=== PATIENT | female | born 1985 | race African-American/Black ===

== ENCOUNTER 2016-05-10 22:03 | Emergency (ER) | payer OTHER ==
[~2016-05-10] VITALS: Ht 162.6 cm; Wt 128.4 kg
[~2016-05-10 22:03] MED LIST: CARV6.25 PO; FAMO20TA5 PO; FURO-68 PO; POTA20TA12 PO
[2016-05-10 22:44] LABS: BILIRUBIN,URINE NEGATIVE (NEG); GLUCOSE,URINE NEGATIVE (NEG); NITRITE,URINE NEGATIVE (NEG); PH,URINE 5.5; PROTEIN,URINE NEGATIVE (NEG-TRACE); UROBILINOGEN,URINE 0.2 mg/dL (0.2 mg/dL)
[2016-05-10 22:46] LABS: BASO # 0.1 x10^3/uL (0.0-0.2); BASO % 1 % (0-3); EOS % 2 % (0-3); HEMOGLOBIN 10.5 g/dL (12.0-15.5); LYMPH % 34 % (24-48); MEAN CORPUSCULAR HEMOGLOBIN 24 pg (25-35); MEAN CORPUSCULAR HGB CONC 32 g/dL (31-37); MEAN CORPUSCULAR VOLUME 75 fL (79-100); MONO % 5 % (0-9); NEUT % 59 % (31-73); PLATELET COUNT 304 x10^3/uL (140-400); RED BLOOD COUNT 4.41 x10^6/uL (3.50-5.40); RED CELL DISTRIBUTION WIDTH 16.4 % (11.5-14.5); WHITE BLOOD COUNT 11.9 x10^3/uL (4.0-11.0)
[2016-05-10 22:52] LABS: BARBITURATES NEG (NEG); BENZODIAZEPINES NEG (NEG); CANNABINOIDS NEG (NEG); COCAINE NEG (NEG); METHADONE NEG (NEG); OPIATES NEG (NEG); PHENCYCLIDINE NEG (NEG)
[2016-05-10 22:53] LABS: ETHANOL, URINE NEG (NEG)
[2016-05-10 22:56] LABS: RBC,URINE RARE /HPF (0-2)
[2016-05-10 22:57] LABS: BACTERIA,URINE FEW /HPF (0-FEW); SQUAMOUS EPITHELIAL CELL,UR MOD /LPF
[2016-05-11 00:04] LABS: CALCIUM 9.5 mg/dL (8.5-10.1); CREATININE 0.7 mg/dL (0.6-1.0); GFR 118.1
[2016-05-11 00:29] VITALS: BP 130/72
[2016-05-11] MEDS ORDERED: NAPROXEN 250 MG TABLET PO ONE (00:45)
[2016-05-11] MEDS ORDERED: CYCLOBENZAPRINE 10 MG TABLET. PO ONE (00:45)
[2016-05-11] MEDS ORDERED: CYCL10TA2 PO (00:55)
[2016-05-11] MEDS ORDERED: NAPR250T2 PO (00:56)
--- NOTE | 2016-05-11 01:17 | EKG ---
[facility] [address] [place] [address] Test Date: 2016-05-10 Test Time: 22:13:55 Pat Name: ISAC OHARA Department: Room: Gender: F Molding And Trim Installer: : 1985 Requested By: ILIANA YANG Order Number: [id number] Reading MD: Blane Limon Measurements Intervals Dante Rate: 66 P: 54 PA: 164 QRS: 27 QRSD: 78 T: 38 QT: 402 QTc: 423 Interpretive Statements SINUS RHYTHM NO SPECIFIC ECG ABNORMALITIES Electronically Signed On 05-20-2016 16:35:37 CDT by Blane Limon
--- NOTE | 2016-05-11 01:33 | ED.ADGEN ---
Past Medical History Past Medical History: CHF, Other Additional Past Medical Histor: Seasonal allergies. Past Surgical History: , Other Additional Past Surgical Histo: TUMOR REMOVED FROM GUM Alcohol Use: Occasionally Drug Use: None Adult General Chief Complaint Chief Complaint: CHEST PAIN HPI HPI Patient is a 30 year old woman, with history of CHF, who stopped taking medications about a year ago, seasonal allergies, who presents to the emergency department with complaint of left upper chest pain over the past several days. She is pain is a constant symptoms began, is sometimes pressure-like in nature, denies any injuries, came be worse with motion. Denies any respiratory complaints. No fevers or chills, no nausea or vomiting, no weakness numbness or tingling. Patient is not taking any medications prior to coming to the ED. She states that she was "stubborn", and did not follow-up with her doctor after she ran out of her medications previously, she was taking Lasix. She denies any history of cardiac heart disease, no family history of sudden cardiac in young people. No recent travel or surgery, no history of DVT or PE. History of enlarged heart", and her father in his 60s. No swelling extremities. No urinary complaints. Review of Systems Review of Systems Constitutional: Denies fever or chills. [] Eyes: Denies change in visual acuity. [] HENT: Denies nasal congestion or sore throat. [] Respiratory: Denies cough or shortness of breath. [] Cardiovascular: Left upper chest pain, no edema. GI: Denies abdominal pain, nausea, vomiting, bloody stools or diarrhea. [] : Denies dysuria. [] Musculoskeletal: Denies back pain or joint pain. [] Integument: Denies rash. [] Neurologic: Denies headache, focal weakness or sensory changes. [] Endocrine: Denies polyuria or polydipsia. [] Lymphatic: Denies swollen glands. [] Psychiatric: Denies depression or anxiety. [] Current Medications Current Medications Current Medications Medications (Trade) Dose Ordered Sig/Hussain Start Time Stop Time Status Last Admin Dose Admin Cyclobenzaprine HCl (Flexeril) 10 mg 1X ONCE 05/11/16 00:45 05/11/16 00:46 DC 05/11/16 00:46 10 MG Naproxen (Naprosyn) 250 mg 1X ONCE 05/11/16 00:45 05/11/16 00:46 DC 05/11/16 00:46 250 MG Allergies Allergies Allergies Coded Allergies Type Severity Reaction Last Updated Verified latex Allergy Intermediate RASH, ITCH 12/05/14 Yes talc Allergy Intermediate RASH, ITCH 12/05/14 Yes Physical Exam Physical Exam Constitutional: Well developed, well nourished, no acute distress, non-toxic appearance. [] HENT: Normocephalic, atraumatic, bilateral external ears normal, oropharynx moist, no oral exudates, nose normal. [] Eyes: PERRLA, EOMI, conjunctiva normal, no discharge. [] Neck: Normal range of motion, no tenderness, supple, no stridor. [] Cardiovascular:Heart rate regular rhythm, no murmur [] Lungs & Thorax: Bilateral breath sounds clear to auscultation [] Abdomen: Bowel sounds normal, soft, no tenderness, no masses, no pulsatile masses. [] Skin: Warm, dry, no erythema, no rash. [] Back: No tenderness, no CVA tenderness. [] Extremities: No tenderness, no cyanosis, no clubbing, ROM intact, no edema. [] Neurologic: Alert and oriented X 3, normal motor function, normal sensory function, no focal deficits noted. [] Psychologic: Affect normal, judgement normal, mood normal. [] Current Patient Data Vital Signs Vital Signs Date Time Temp Pulse Resp B/P Pulse Ox O2 Delivery O2 Flow Rate FiO2 05/10/16 22:20 98.7 67 21 166/74 99 Room Air 98.7 Lab Values Laboratory Tests Test 05/10/16 21:37 05/10/16 22:25 POC Urine HCG, Qualitative Hcg negative (Negative) White Blood Count 11.9x10^3/uL (4.0-11.0) H Red Blood Count 4.41x10^6/uL (3.50-5.40) Hemoglobin 10.5g/dL (12.0-15.5) L Hematocrit 33.0% (36.0-47.0) L Mean Corpuscular Volume 75fL (79-100) L Mean Corpuscular Hemoglobin 24pg (25-35) L Mean Corpuscular Hemoglobin Concent 32g/dL (31-37) Red Cell Distribution Width 16.4% (11.5-14.5) H Platelet Count 304x10^3/uL (140-400) Neutrophils (%) (Auto) 59% (31-73) Lymphocytes (%) (Auto) 34% (24-48) Monocytes (%) (Auto) 5% (0-9) Eosinophils (%) (Auto) 2% (0-3) Basophils (%) (Auto) 1% (0-3) Neutrophils # (Auto) 7.1x10^3uL (1.8-7.7) Lymphocytes # (Auto) 4.0x10^3/uL (1.0-4.8) Monocytes # (Auto) 0.6x10^3/uL (0.0-1.1) Eosinophils # (Auto) 0.2x10^3/uL (0.0-0.7) Basophils # (Auto) 0.1x10^3/uL (0.0-0.2) Urine Collection Type Unknown Urine Color Yellow Urine Clarity Clear Urine pH 5.5 Urine Specific [place] 1.025 Urine Protein Negativemg/dL (NEG-TRACE) Urine Glucose (UA) Negativemg/dL (NEG) Urine Ketones (Stick) Negativemg/dL (NEG) Urine Blood Trace (NEG) Urine Nitrite Negative (NEG) Urine Bilirubin Negative (NEG) Urine Urobilinogen Dipstick 0.2mg/dL (0.2 mg/dL) Urine Leukocyte Esterase Small (NEG) Urine RBC Rare/HPF (0-2) Urine WBC 1-4/HPF (0-4) Urine Squamous Epithelial Cells Mod/LPF Urine Bacteria Few/HPF (0-FEW) Urine Mucus Mod/LPF Sodium Level 139mmol/L (136-145) Potassium Level 4.0mmol/L (3.5-5.1) Chloride Level 103mmol/L (98-107) Carbon Dioxide Level 24mmol/L (21-32) Anion Gap 12 (6-14) Blood Urea Nitrogen 12mg/dL (7-20) Creatinine 0.7mg/dL (0.6-1.0) Estimated GFR (Cockcroft-Gault) 118.1 Glucose Level 87mg/dL (70-99) Calcium Level 9.5mg/dL (8.5-10.1) Troponin I Quantitative < 0.017ng/mL (0.000-0.055) BH-Wmk-B-Type Natriuretic Peptide 33pg/mL (0-124) Lipase 130U/L (73-393) Urine Opiates Screen Neg (NEG) Urine Methadone Screen Neg (NEG) Urine Barbiturates Neg (NEG) Urine Phencyclidine Screen Neg (NEG) Urine Amphetamine/Methamphetamine Neg (NEG) Urine Benzodiazepines Screen Neg (NEG) Urine Cocaine Screen Neg (NEG) Urine Cannabinoids Screen Neg (NEG) Urine Ethyl Alcohol Neg (NEG) Laboratory Tests 05/10/16 22:25 Laboratory Tests 05/10/16 22:25 EKG EKG EC: Sinus rhythm, heart rate 66 bpm, upright axis, QTC of 423, MD 154, QRS is 78, no ST elevations or depressions, no evidence of acute ST abnormalities. As interpreted by me. [] Radiology/Procedures Radiology/Procedures Chest x-ray: Two-view: Normal cardiopulmonary silhouette, no infiltrates, no effusions, no pneumothorax, no soft tissue or bony abnormalities identified. As interpreted by me. [] Course & Med Decision Making Course & Med Decision Making Pertinent Labs and Imaging studies reviewed. (See chart for details) Patient well-appearing, mild tenderness palpation in the left upper chest wall. Oxygen saturation is 99% room air, heart rate is in the 60s to 80s, versus relate unlabored, blood pressure 120s over 70s. PERC negative, chest x-ray unremarkable, laboratory studies are reveal any evidence of acutely concerning findings. On reevaluation patient states that she is feeling better. Received naproxen, cyclobenzaprine, with concern musculoskeletal pain, I do not identify any concerning findings of cardiac or pulmonary abnormality. I did discuss with patient, she is relieved with these findings. Patient receiving laboratory trial in the emergency department, oxygen saturation 100% throughout, heart rate in the 70s to 80s, denied any concerning symptoms. I did discuss concerning symptoms that prompt return with the patient, encouraged her to follow problems her primary care provider for additional evaluation, and to return to the ED if any new or concerning symptoms develop. Patient voiced understanding and agreement, discharged home in stable condition with cyclobenzaprine, naproxen, and follow-up as stated. Dragon Disclaimer Dragon Disclaimer This electronic medical record was generated, in whole or in part, using a voice recognition dictation system. Departure Impression: Primary Impression: Chest wall pain Disposition: HOME, SELF-CARE Condition: IMPROVED Scripts Naproxen 250 Mg [id number] Mg PO BID PRN PAIN #10 Prov:ILIANA YANG DO 05/11/16 Cyclobenzaprine Hcl 10 Mg [id number] Mg PO TID PRN PAIN #12 TAB Prov:ILIANA YANG DO 05/11/16 ILIANA YANG DO May 11, 2016 01:33
--- NOTE | 2016-05-11 08:16 | RAD ---
Indication left-sided chest pain. PA and lateral views of the chest were obtained. Note is made of a previous single view examination 10/02/2013. The heart, pulmonary vessels and mediastinum appear normal. The lungs are clear. There is no pleural fluid or pneumothorax. IMPRESSION: No acute finding apparent in the chest
== END 2016-05-11 01:15 | disposition home or self-care (01) ==
LOC: ER 22:03
DX: R07.89 Other chest pain (principal); I50.9 Heart failure, unspecified; Z91.040 Latex allergy status; Z91.048 Other nonmedicinal substance allergy status
CPT/HCPCS: 36415; 71020; 80048; 80305; 80320; 81001; 81025; 83690; 83880; 84484; 85027; 87086; 93005; G0481; 99285-25

== ENCOUNTER 2017-08-31 11:58 | Emergency (ER) | payer OTHER ==
[2017-08-31] MEDS: LIDOCAINE WITH 8.4% SOD BICARB 3 ML DISP.SYRIN. INJ (12:45)
[2017-08-31] MEDS: HYDROcodone/APAP 5/325MG 1 TAB TABLET PO (13:54)
== END 2017-08-31 13:59 | disposition home or self-care (01) ==
LOC: ER 11:58
DX: Z88.8 Allergy status to other drugs, medicaments and biological substances (principal); Z91.040 Latex allergy status; L02.411 Cutaneous abscess of right axilla
CPT/HCPCS: 10060; 99283-25

== ENCOUNTER 2019-04-22 19:46 | Emergency (ER) | payer OTHER ==
[~2019-04-22] VITALS: Ht 162.6 cm; Wt 127.3 kg
[~2019-04-22 19:46] MED LIST changes: +CYCL10TA2 PO; +IBUP-1007 PO; +NAPR250T6 PO; +SULF1TAB24 PO
[2019-04-22 20:01] VITALS: BP 157/100
[2019-04-22] MEDS ORDERED: TOBR5DRO6 EACHEYE (20:21)
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
== END 2019-04-22 20:24 | disposition home or self-care (01) ==
LOC: ER 19:46
DX: H10.89 Other conjunctivitis (principal); Z86.79 Personal history of other diseases of the circulatory system; Z91.040 Latex allergy status; Z88.8 Allergy status to other drugs, medicaments and biological substances
CPT/HCPCS: 99283

== ENCOUNTER 2019-12-06 14:30 | Emergency (ER) | payer OTHER ==
[~2019-12-06] VITALS: Ht 162.6 cm; Wt 133.6 kg
[~2019-12-06 14:30] MED LIST changes: +TOBR5DRO6 EACHEYE
[2019-12-06 16:58] LABS: BILIRUBIN,URINE NEGATIVE (NEG); CLARITY,URINE CLEAR; COLOR,URINE YELLOW; NITRITE,URINE NEGATIVE (NEG); PH,URINE 7.5 (<5.0-8.0); PROTEIN,URINE NEGATIVE (NEG-TRACE)
[2019-12-06 17:26] LABS: BACTERIA,URINE FEW /HPF (0-FEW)
[2019-12-06 18:10] VITALS: BP 160/96
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
== END 2019-12-06 19:00 | disposition home or self-care (01) ==
LOC: ER 14:30
DX: S70.01XA Contusion of right hip, initial encounter (principal); M54.5 Low back pain; I50.9 Heart failure, unspecified; E66.9 Obesity, unspecified; Z68.43 Body mass index [BMI] 50.0-59.9, adult; Z91.040 Latex allergy status; Z88.8 Allergy status to other drugs, medicaments and biological substances; Z98.890 Other specified postprocedural states; Y08.89XA Assault by other specified means, initial encounter; Y93.89 Activity, other specified; Y92.89 Other specified places as the place of occurrence of the external cause; Y99.8 Other external cause status
CPT/HCPCS: 81001; 81025; 99283

== ENCOUNTER 2020-04-05 12:15 | Emergency (ER) | payer OTHER ==
[~2020-04-05] VITALS: Ht 162.6 cm; Wt 136.0 kg
[2020-04-05 12:40] LABS: BILIRUBIN,URINE NEGATIVE (NEG); CLARITY,URINE CLOUDY; COLOR,URINE YELLOW; NITRITE,URINE NEGATIVE (NEG); PH,URINE 5.5 (<5.0-8.0); PROTEIN,URINE 100 mg/dL (NEG-TRACE); UROBILINOGEN,URINE 0.2 mg/dL (0.2 mg/dL)
[2020-04-05 13:07] LABS: WBC,URINE >40 /HPF (0-4)
[2020-04-05 13:09] LABS: AMORPHOUS SEDIMENT,UR PRESENT /HPF; BACTERIA,URINE FEW /HPF (0-FEW)
[2020-04-05] MEDS ORDERED: DOXYCYCLINE HYCLATE 100 MG TABLET PO ONE (13:45)
[2020-04-05] MEDS ORDERED: cefTRIAXone IM 500 MG VIAL. IM ONE (13:45)
[2020-04-05 15:10] VITALS: BP 147/78
[2020-04-05] MEDS ORDERED: DOXY100T PO (15:10)
[2020-04-05] MEDS ORDERED: CEPH500T PO (15:10)
--- NOTE | 2020-04-05 15:10 | PHYS DOC ---
Past Medical History Past Medical History: CHF, Other Additional Past Medical Histor: Seasonal allergies, Obesity Past Surgical History: , Other Additional Past Surgical Histo: TUMOR REMOVED FROM GUM Smoking Status: Never Smoker Alcohol Use: Occasionally Drug Use: None General Adult EDM: Chief Complaint: VAGINAL PROBLEM HPI: HPI: Patient is a 34 year old female patient presenting to the ED today complaining of vaginal itching with odorous smell that began 4 days after having intercourse with her significant other. Patient is concerned about STDs would like to be tested and treated. Review of Systems: Review of Systems: Constitutional: Denies fever or chills. [] GI: Reports vaginal itching, odor or discharge. Denies abdominal pain, nausea, vomiting, bloody stools or diarrhea. [] : Denies dysuria. [] Musculoskeletal: Denies back pain or joint pain. [] Integument: Denies rash. [] Neurologic: Denies headache, focal weakness or sensory changes. [] Psychiatric: Denies depression or anxiety. [] Heart Score: Risk Factors: Risk Factors: DM, Current or recent (<one month) smoker, HTN, HLP, family history of CAD, obesity. Risk Scores: Score 0 - 3: 2.5% MACE over next 6 weeks - Discharge Home Score 4 - 6: 20.3% MACE over next 6 weeks - Admit for Clinical Observation Score 7 - 10: 72.7% MACE over next 6 weeks - Early Invasive Strategies Current Medications: Current Medications Medications (Trade) Dose Ordered Sig/Hussain Start Time Stop Time Status Last Admin Dose Admin Ceftriaxone Sodium (Rocephin Im) 500 mg 1X ONCE 04/05/20 13:45 04/05/20 13:46 DC 04/05/20 14:16 500 MG Doxycycline Hyclate (Vibra-Tab) 100 mg 1X ONCE 04/05/20 13:45 04/05/20 13:46 DC 04/05/20 14:16 100 MG Allergies: Allergies: Allergies Coded Allergies Type Severity Reaction Last Updated Verified latex Allergy Intermediate RASH, ITCH 12/05/14 Yes talc Allergy Intermediate RASH, ITCH 12/05/14 Yes Physical Exam: PE: Constitutional: Well developed, well nourished, no acute distress, non-toxic appearance. [] Abdomen: Bowel sounds normal, soft, no tenderness, no masses, no pulsatile masses. [] Pelvic exam-external pelvic appears normal, cervix is visualized, closed, no CMT, no evidence of tenderness, trace amount of white discharge in the vaginal vault Skin: Warm, dry, no erythema, no rash. [] Back: No tenderness, no CVA tenderness. [] Extremities: No tenderness, no cyanosis, no clubbing, ROM intact, no edema. [] Neurologic: Alert and oriented X 3, normal motor function, normal sensory function, no focal deficits noted. [] Psychologic: Affect normal, judgement normal, mood normal. [] Current Patient Data: Labs: Laboratory Tests Test 04/05/20 12:20 04/05/20 12:33 Urine Collection Type Void Urine Color Yellow Urine Clarity Cloudy Urine pH 5.5 (<5.0-8.0) Urine Specific [place] 1.025 (1.000-1.030) Urine Protein 100 mg/dL (NEG-TRACE) Urine Glucose (UA) Negative mg/dL (NEG) Urine Ketones (Stick) Negative mg/dL (NEG) Urine Blood Small (NEG) Urine Nitrite Negative (NEG) Urine Bilirubin Negative (NEG) Urine Urobilinogen Dipstick 0.2 mg/dL (0.2 mg/dL) Urine Leukocyte Esterase Large (NEG) Urine RBC 1-2 /HPF (0-2) Urine WBC >40 /HPF (0-4) Urine Squamous Epithelial Cells Many /LPF Urine Amorphous Sediment Present /HPF Urine Bacteria Few /HPF (0-FEW) Urine Mucus Mod /LPF POC Urine HCG, Qualitative Hcg negative (Negative) Microbiology 04/05/20 Wet Prep - Final, Complete Vital Signs: Vital Signs Date Time Temp Pulse Resp B/P (MAP) Pulse Ox O2 Delivery O2 Flow Rate FiO2 04/05/20 13:16 98.1 78 18 155/82 (106) 98 Room Air 98.1 EKG: EKG: [] Radiology/Procedures: Radiology/Procedures: [] Course & Med Decision Making: Course & Med Decision Making Pertinent Labs and Imaging studies reviewed. (See chart for details) This is a 34-year-old female patient presenting to the ED today complaining of vaginal discharge, odorous smell symptoms began 4 days ago after having intercourse with significant other. Is concerned about STDs. Negative urine hCG, positive for UTI, wet prep negative. + for UTI. Was treated for STDs, discharged on doxycycline. Follow-up with PCP in 1 to 2 weeks Ankit Disclaimer: Ankit Disclaimer: This electronic medical record was generated, in whole or in part, using a voice recognition dictation system. Departure Departure Impression: Primary Impression: Concern about STD in female without diagnosis Additional Impression: Urinary tract infection Qualified Codes: N39.0 - Urinary tract infection, site not specified Disposition: DC HOME SELF CARE/HOMELESS Condition: STABLE Referrals: BOB TANNER MD (PCP) follow up in 1-2 weeks Patient Instructions: Sexually Transmitted Disease, [id number], Urinary Tract Infection Additional Instructions: You were tested for sexually transmitted diseases, we will call you if your results are positive. You also have UTI. Please complete the rest of the prescribed antibiotics. Do not have any intercourse for 1 week. Make sure you let your partner know you are positive for STDs and have him get treated Scripts Cephalexin (CEPHALEXIN) 500 Mg Tablet 1 TAB PO BID, #14 TAB Prov: TIEN KING ASSISTANT DIRECTOR OF ADMISSIONS 04/05/20 Doxycycline Hyclate (DOXYCYCLINE HYCLATE) 100 Mg Tablet 1 TAB PO BID, #14 TAB Prov: TIEN KING ASSISTANT DIRECTOR OF ADMISSIONS 04/05/20 TIEN KING APRN Apr 05, 2020 15:10
[2020-04-06 19:09] LABS: GC PROBE Negative (Negative)
== END 2020-04-05 15:29 | disposition home or self-care (01) ==
LOC: ER 12:15
DX: N39.0 Urinary tract infection, site not specified (principal); N89.8 Other specified noninflammatory disorders of vagina; L29.2 Pruritus vulvae; I50.9 Heart failure, unspecified; E66.8 Other obesity; Z98.890 Other specified postprocedural states; Z68.43 Body mass index [BMI] 50.0-59.9, adult; Z91.040 Latex allergy status
CPT/HCPCS: 81001; 81025; 87086; 87491; 87591; 96372; 99283; J0696; Q0111

== ENCOUNTER 2020-08-22 09:02 | Emergency (ER) | payer OTHER ==
[~2020-08-22] VITALS: Ht 162.6 cm; Wt 140.0 kg
[~2020-08-22 09:02] MED LIST changes: +CEPH500T PO; +DOXY100T PO; +NAPR-699 PO; -NAPR250T6 PO
[2020-08-22] MEDS ORDERED: DEXAMETHASONE 4 MG TABLET PO ONE (09:15)
[2020-08-22] MEDS ORDERED: METH4TAB2 PO (09:29)
[2020-08-22] MEDS ORDERED: AMOX500C PO (09:29)
--- NOTE | 2020-08-22 09:30 | PHYS DOC ---
Past Medical History Past Medical History: CHF, Other Additional Past Medical Histor: Seasonal allergies, Obesity (AMELIA FAULKNER SHEET PILE HAMMER OPERATOR) Past Surgical History: , Other Additional Past Surgical Histo: TUMOR REMOVED FROM GUM (AMELIA FAULKNER SHEET PILE HAMMER OPERATOR) Smoking Status: Never Smoker Alcohol Use: Occasionally Drug Use: None (AMELIA FAULKNER APRN) General Adult EDM: Chief Complaint: EARACHE/EAR PAIN HPI: HPI: Patient is a 34 year old female who presents with sore throat, fever, ear pain x 3 days. Patient states she has been taking benadryl for her runny nose because she has seasonal allergies. Patient states that she is able to drink and eat food but it hurts to swallow. She rates her pain as a 7/10. Denies headache, chest pain, soa, wheezing, cough, abdominal pain, diarrhea, constipation, dizziness, vomiting, nausea. (AMELIA FAULKNER SHEET PILE HAMMER OPERATOR) Review of Systems: Review of Systems: Constitutional: + fever or chills. [] Eyes: Denies change in visual acuity. [] HENT: + nasal congestion or +sore throat. +ear pain[] Respiratory: Denies cough or shortness of breath. [] Cardiovascular: Denies chest pain or edema. [] GI: Denies abdominal pain, nausea, vomiting, bloody stools or diarrhea. [] : Denies dysuria. [] Musculoskeletal: Denies back pain or joint pain. [] Integument: Denies rash. [] Neurologic: Denies headache, focal weakness or sensory changes. [] Endocrine: Denies polyuria or polydipsia. [] Lymphatic: Denies swollen glands. [] Psychiatric: Denies depression or anxiety. [] (AMELIA FAULKNER SHEET PILE HAMMER OPERATOR) Heart Score: C/O Chest Pain: No Risk Factors: Risk Factors: DM, Current or recent (<one month) smoker, HTN, HLP, family history of CAD, obesity. Risk Scores: Score 0 - 3: 2.5% MACE over next 6 weeks - Discharge Home Score 4 - 6: 20.3% MACE over next 6 weeks - Admit for Clinical Observation Score 7 - 10: 72.7% MACE over next 6 weeks - Early Invasive Strategies (AMELIA FAULKNER SHEET PILE HAMMER OPERATOR) Allergies: Allergies: Allergies Coded Allergies Type Severity Reaction Last Updated Verified latex Allergy Intermediate RASH, ITCH 12/05/14 Yes talc Allergy Intermediate RASH, ITCH 12/05/14 Yes (AMELIA FAULKNER APRN) Physical Exam: PE: Constitutional: Well developed, well nourished, no acute distress, non-toxic appearance. [] HENT: Normocephalic, atraumatic, bilateral external ears normal, oropharynx moist, no oral exudates, nose normal. Right ear redness. Bilateral tympanics intact but foggy. Bilateral tonsils 2+ swollen without exudates. [] Eyes: PERRLA, EOMI, conjunctiva normal, no discharge. [] Neck: Normal range of motion, no tenderness, supple, no stridor. [] Cardiovascular:Heart rate regular rhythm, no murmur [] Lungs & Thorax: Bilateral breath sounds clear to auscultation [] Abdomen: Bowel sounds normal, soft, no tenderness, no masses, no pulsatile masses. [] Skin: Warm, dry, no erythema, no rash. [] Back: No tenderness, no CVA tenderness. [] Extremities: No tenderness, no cyanosis, no clubbing, ROM intact, no edema. [] Neurologic: Alert and oriented X 3, normal motor function, normal sensory function, no focal deficits noted. [] Psychologic: Affect normal, judgement normal, mood normal. [] (AMELIA FAULKNER APRN) EKG: EKG: [] (AMELIA FAULKNER APRN) Radiology/Procedures: Radiology/Procedures: [] (AMELIA FAULKNER APRN) Course & Med Decision Making: Course & Med Decision Making Pertinent Labs and Imaging studies reviewed. (See chart for details) See HPI. Alert and oriented x4. Speaks in full clear sentences. Skin pink warm and dry. Lungs clear to auscultation in all lobes. vital signs wnl. uvula mid line. No trimus. Bilateral tympanics foggy, intact but right tympanic red. No nuchal rigidity. swallowing saliva. Patient is given dexamethasone in the ed. [] (AMELIA FAULKNER APRN) Course & Med Decision Making I oversaw on the above date of service of this patient. This patient was evaluated, examined, treated, and dispositioned from the emergency department by the mid-level practitioner. Although I was working at the time and available for consultation, no assistance was requested and I did not see or immediately direct the care of this patient. I reviewed note and agree to findings, plan of care, and disposition as stated. Electronically signed, Sarabjit Moore DO (SARABJIT MOORE DO) Ankit Disclaimer: Ankit Disclaimer: This electronic medical record was generated, in whole or in part, using a voice recognition dictation system. (AMELIA FAULKNER APRN) Departure Departure Impression: Primary Impression: Otitis media Qualified Codes: H65.113 - Acute and subacute allergic otitis media (mucoid) (sanguinous) (serous), bilateral Additional Impression: Sore throat Disposition: HOME / SELF CARE / HOMELESS Condition: STABLE Referrals: BOB TANNER MD (PCP) Patient Instructions: Otitis Media, Adult, Tonsillitis Additional Instructions: Follow-up with primary care provider. Drink plenty of fluids. Take medication as prescribed and with food. If you begin to not be able to swallow your own saliva or have trouble breathing return emergency room. Scripts Methylprednisolone (MEDROL) 4 Mg Tab.ds.pk 1 PKG PO UD, #1 PKG Prov: AMELIA FAULKNER APRN 08/22/20 Amoxicillin (AMOXICILLIN) 500 Mg Capsule 1 CAP PO BID, #20 CAP Prov: AMELIA FAULKNER APRN 08/22/20 AMELIA FAULKNER APRN Aug 22, 2020 09:30 SARABJIT MOORE DO Aug 22, 2020 17:12
[2020-08-22 09:41] VITALS: BP 148/76
== END 2020-08-22 10:11 | disposition home or self-care (01) ==
LOC: ER 09:02
DX: H65.113 Acute and subacute allergic otitis media (mucoid) (sanguinous) (serous), bilateral (principal); J02.9 Acute pharyngitis, unspecified; Z86.79 Personal history of other diseases of the circulatory system; Z91.040 Latex allergy status; Z88.8 Allergy status to other drugs, medicaments and biological substances
CPT/HCPCS: 87880; 99283

== ENCOUNTER 2020-10-03 10:06 | Emergency (ER) | payer OTHER ==
[~2020-10-03] VITALS: Ht 162.6 cm; Wt 137.0 kg
[~2020-10-03 10:06] MED LIST changes: +AMOX500C PO; +METH4TAB2 PO
[2020-10-03 10:20] VITALS: BP 179/85
[2020-10-03] MEDS ORDERED: FLUORESCEIN OPHTH TEST STRIP. OS ONE (10:45)
[2020-10-03] MEDS ORDERED: TETRACAINE 0.5% OPHTH SOLUTION 4ML BOTTLE. OS ONE (10:45)
[2020-10-03] MEDS ORDERED: EYE-STREAM OPHTH SOLUTION 120 ML BOTTLE. OS ONE (10:45)
[2020-10-03] MEDS ORDERED: ERYTHROMYCIN 0.5% OPHTH OINTMENT 1GM TUBE. OS ONE (11:45)
[2020-10-03] MEDS ORDERED: DIPH,PERTUSS(ACELL),TET VAC/PF 0.5 ML SYRINGE. VAX IM ONE (12:00)
[2020-10-03] MEDS ORDERED: ERYT1OIN3 LEFTEYE (12:06)
--- NOTE | 2020-10-03 12:07 | PHYS DOC ---
Past Medical History Past Medical History: CHF, Other Additional Past Medical Histor: Seasonal allergies, Obesity (CATE BISWAS APRN) Past Surgical History: , Other Additional Past Surgical Histo: TUMOR REMOVED FROM GUM (CATE BISWAS APRN) Smoking Status: Never Smoker Alcohol Use: Occasionally Drug Use: None (CATE BISWAS APRN) General Adult EDM: Chief Complaint: EYE PROBLEMS HPI: HPI: Patient is a 34 year old female presents to the emergency department chief complaint left eye irritation for the past week. Patient reports last week she was using a spray disinfectant and some sprayed into her eye. Patient reports she immediately irrigated her left eye with water. Patient reports she had some mild discomfort and redness throughout the week, patient feels she may have scratched her eye because it feels like there is something in it now when it did not feel this way before. Patient denies any decreased vision or eye pain. Patient denies any other physical complaints or physical concerns. Patient reports receiving the COVID-19 virus vaccine Pfizer type first series injection, reports her second and injection is due 17 October 2020. Patient states her last tetanus immunization was greater than 5 years ago. Patient denies any other physical complaints or physical concerns. (CATE BISWAS APRN) Review of Systems: Review of Systems: 14 body systems of review of systems have been reviewed. See HPI for pertinent positives and negative responses, otherwise all other systems are negative, nonpertinent or noncontributory. Constitutional: Negative except as outlined in HPI above. Skin: Negative except as outlined in HPI above. Eyes: Negative except as outlined in HPI above. HENT: Negative except as outlined in HPI above. Respiratory: Negative except as outlined in HPI above. Cardiovascular: Negative except as outlined in HPI above. GI: Negative except as outlined in HPI above. : Negative except as outlined in HPI above. Musculoskeletal: Negative except as outlined in HPI above. Integument: Negative except as outlined in HPI above. Neurologic: Negative except as outlined in HPI above. Endocrine: Negative except as outlined in HPI above. Lymphatic: Negative except as outlined in HPI above. Psychiatric: Negative except as outlined in HPI above. (CATE BISWAS APRN) Heart Score: C/O Chest Pain: No Risk Factors: Risk Factors: DM, Current or recent (<one month) smoker, HTN, HLP, family history of CAD, obesity. Risk Scores: Score 0 - 3: 2.5% MACE over next 6 weeks - Discharge Home Score 4 - 6: 20.3% MACE over next 6 weeks - Admit for Clinical Observation Score 7 - 10: 72.7% MACE over next 6 weeks - Early Invasive Strategies (CATE BISWAS APRN) Current Medications: Current Medications Medications (Trade) Dose Ordered Sig/Hussain Start Time Stop Time Status Last Admin Dose Admin Balanced Salt Solution (Eye-Stream) 120 ml 1X ONCE 10/03/20 10:45 10/03/20 10:46 DC 10/03/20 11:09 120 ML Erythromycin (Romycin) 0.25 inch 1X ONCE 10/03/20 11:45 10/03/20 11:46 UNV Fluorescein Sodium (Ful-Elis) 1 strip 1X ONCE 10/03/20 10:45 10/03/20 10:46 DC 10/03/20 10:45 1 STRIP Tetracaine HCl (Tetracaine) 1 drop 1X ONCE 10/03/20 10:45 10/03/20 10:46 DC 10/03/20 10:44 1 DROP (CATE BISWAS APRN) Allergies: Allergies: Allergies Coded Allergies Type Severity Reaction Last Updated Verified latex Allergy Intermediate RASH, ITCH 12/05/14 Yes talc Allergy Intermediate RASH, ITCH 12/05/14 Yes (CATE BISWAS APRN) Physical Exam: PE: Constitutional: Well developed, well nourished, no acute distress, non-toxic appearance. 34-year-old female in no apparent distress. HENT: Normocephalic, atraumatic. Eyes: no discharge, satisfactory 6 cardinal eye movements, mild conjunctivitis, globe intact, Young lamp examination after tetracaine eyedrops instilled and fluorescein dye reveals corneal abrasion at 9 o'clock position left eye just outside of iris border. Visual acuity OD 20/20, OS 20/15, OU 20/13. Neck: Normal range of motion, no stridor. Cardiovascular: No cyanosis appreciated, distal cap refill less than 2 seconds. Lungs & Thorax: Patient is in no respiratory distress, no audible adventitious lung sounds appreciated. Abdomen: Nontender, no abnormalities noted. Skin: Warm, dry, no erythema, no rash. [] Back: No tenderness, no deformities. Extremities: No tenderness, no cyanosis, no clubbing, ROM intact, no edema. [] Neurologic: Alert and oriented X 3, normal motor function, normal sensory function, no focal deficits noted. Psychologic: Affect normal, judgement normal, mood normal. (CATE BISWAS APRN) Current Patient Data: Labs: Laboratory Tests Test 10/03/20 10:45 SARS-CoV-2 Antigen (Rapid) Negative (NEGATIVE) Vital Signs: Vital Signs Date Time Temp Pulse Resp B/P (MAP) Pulse Ox O2 Delivery O2 Flow Rate FiO2 10/03/20 10:20 99.3 79 20 179/85 (101) 97 Room Air 99.3 (CATE BISWAS APRN) EKG: EKG: [] (CATE BISWAS APRN) Radiology/Procedures: Radiology/Procedures: [] (CATE BISWAS APRN) Course & Med Decision Making: Course & Med Decision Making Pertinent Labs and Imaging studies reviewed. (See chart for details) 34-year-old female, vital signs reviewed, presents to the emergency department with chief complaint of left eye irritation for the past 2 days. Physical examination with fluorescein eye stain reveals corneal abrasion. Will bring patient's tetanus immunization status up-to-date with Adacel/Tdap, start on erythromycin eye ointment antibiotic regimen. Discussed findings with patient, discussed eye ointment antibiotic regimen, side effects, new medications, ongoing care at home, follow-up with eye doctor soon, patient is amenable to ED discharge planning. Covid testing performed in ED today, patient's rapid Covid test negative. Patient is aware of this. Fluorescein Wood's lamp examination performed, tetracaine eyedrops instilled to left eye, fluorescein dye, examination revealed corneal abrasion just outside iris border at the 9 o'clock position, I irrigated with normal saline eye irrigation wash 120 cc. Patient tolerated well. Discussed with the patient all findings and diagnostic testing as well as the need to follow-up with their primary care provider for further evaluation and treatment or return to the ED if any new or worsening symptoms. Strict return precautions were also discussed at length, the patient voiced understanding and agreement with the discharge planning. The patient was nontoxic in appearance, in no apparent distress, and hemodynamically stable at the time of disposition. (CATE BISWAS APRN) Course & Med Decision Making I have participated in the care of this patient and I have reviewed and agree with all pertinent clinical information above including history, exam, and recommendations. Yaw Bingham DO (YAW BINGHAM DO) Ankit Disclaimer: Ankit Disclaimer: This electronic medical record was generated, in whole or in part, using a voice recognition dictation system. (CATE BISWAS APRN) Departure Departure Impression: Primary Impression: Corneal abrasion, left Qualified Codes: S05.02XA - Injury of conjunctiva and corneal abrasion without foreign body, left eye, initial encounter Disposition: HOME / SELF CARE / HOMELESS Condition: GOOD Referrals: BOB TANNER MD (PCP) Patient Instructions: Eye - Corneal Abrasion Additional Instructions: You were seen today for an irritation to the left eye. An examination was performed with a Young lamp, this examination showed you have a scratch which is sometimes called an abrasion to the cornea of your eye. As we discussed, you are starting on an antibiotic ointment regimen, please place 1/4 inch ribbon inside the lower eyelid 4 times a day for the next 5 days. Please follow-up with an eye doctor this week for ongoing examination and management. Thank you for visiting our Emergency Department. It was a pleasure taking care of you today in the emergency department and we appreciate you trusting us with your care. If any additional problems come up don't hesitate to return to visit us. Please follow up with your primary care provider so they can plan additional care if needed and know about the problem that you had. If symptoms worsen come back to the Emergency Department. Any concerning symptoms that start such as chest pain, shortness of air, weakness or numbness on one side of the body, running high fevers or any other concerning symptoms return to the ER. Your tetanus immunization was brought up-to-date today in the emergency department with a medication called Adacel/Tdap. Please update your immunization records accordingly. EMERGENCY DEPARTMENT GENERAL DISCHARGE INSTRUCTIONS Thank you for coming to [facility] Emergency Department (ED) today and trusting us with you care. We trust that you had a positive experience in our Emergency Department. If you wish to speak to the department management, you may call the Director at [phone]. YOUR FOLLOW UP INSTRUCTIONS ARE FOLLOWS: 1. Do you have a private Doctor? If you do not have a private doctor, please ask for a resource list of physicians or clinics that may be able to assist you with follow up care. 2. The Emergency Physicain has interpreted your x-rays. The X-Ray specialist will also review them. If there is a change in the findings, you will be notified in 48 hours when at all possible. 3. A lab test or culture has been done, your results will be reviewed and you will be notified if you need a change in treatment. ADDITIONAL INSTRUCTIONS AND INFORMATION: 1. Your care today has been supervised by a physician who is specially trained in emergency care. Many problems require more than one evaluation for a complete diagnosis and treatment. We recommend that you schedule your follow up appointment as recommended to ensure complete treatment of you illness or injury. If you are unable to obtain follow up care and continue to have a problem, or if your condition worsens, we recommend that you return to the ED. 2. We are not able to safely determine your condition over the phone nor are we able to give sound medical advice over the phone. For these safety reasons, if you call for medical advice we will ask you to come to the ED for further evaluation. 3. If you have any questions regarding these discharge instructions please call the ED at [phone]. SAFETY INFORMATION: In the interest of safety, wellness, and injury prevention; we encourage you to wear your sealbelt, if you smoke; quite smoking, and we encourage family to use a protective helmet for bicycling and other sporting events that present an increased risk for head injury. IF YOUR SYMPTOMS WORSEN OR NEW SYMPTOMS DEVELOP, OR YOU HAVE CONCERNS ABOUT YOUR CONDITION; OR IF YOUR CONDITION WORSENS WHILE YOU ARE WAITING FOR YOUR FOLLOW UP APPOINTMENT; EITHER CONTACT YOUR PRIMARY CARE DOCTOR, THE PHYSICIAN WHOSE NAME AND NUMBER YOU WERE GIVEN, OR RETURN TO THE ED IMMEDIATELY. Scripts Erythromycin Base (ERYTHROMYCIN) 3.5 Gm Oint...g. 1 DANIEL ENRRIQUE QID for corneal abrasion, #3.5 GM 0 Refills Prov: CATE BISWAS APRN 10/03/20 CATE BISWAS APRN Oct 03, 2020 12:07 YAW BINGHAM DO Oct 03, 2020 16:24
--- NOTE | 2020-10-04 19:44 | NUR ---
IP: Attempted to contact pt concerning covid results. No answer, left a voicemail to return the call.
--- NOTE | 2020-10-05 10:11 | NUR ---
IP: Informed pt of negative covid test. Pt verbalized understanding.
== END 2020-10-03 12:50 | disposition home or self-care (01) ==
LOC: ER 10:06
DX: S05.02XA Injury of conjunctiva and corneal abrasion without foreign body, left eye, initial encounter (principal); Z20.822 Contact with and (suspected) exposure to COVID-19; Z86.79 Personal history of other diseases of the circulatory system; Z91.040 Latex allergy status; Z88.8 Allergy status to other drugs, medicaments and biological substances; X58.XXXA Exposure to other specified factors, initial encounter; Y93.89 Activity, other specified; Y92.89 Other specified places as the place of occurrence of the external cause; Y99.8 Other external cause status
CPT/HCPCS: 87426; 90471; 90715; 99283; U0003; U0005

== ENCOUNTER 2020-11-09 10:44 | Emergency (ER) | payer OTHER ==
[~2020-11-09] VITALS: Ht 162.6 cm; Wt 138.0 kg
[~2020-11-09 10:44] MED LIST changes: +ERYT1OIN3 LEFTEYE
--- NOTE | 2020-11-09 11:31 | PHYS DOC ---
Past Medical History Past Medical History: CHF, Other Additional Past Medical Histor: Seasonal allergies, Obesity (RONAK MORAN) Past Surgical History: No Surgical History Additional Past Surgical Histo: TUMOR REMOVED FROM GUM (RONAK MORAN) Smoking Status: Never Smoker Alcohol Use: Occasionally Drug Use: None (RONAK MORAN) General Adult EDM: Chief Complaint: SEXUALLY TRANSMITTED DISEASE HPI: HPI: Patient is a 34 year old female who presents with 2-week history of increased vaginal discharge and dysuria. Patient describes her discharge as yellowish and thick, however changes in consistency day-to-day. She reports associated "light odor." Patient has one sexual partner currently, who she states has not made her aware of any symptoms he may be having. Patient denies abdominal pain, N/V/D, pelvic pain, and hematuria. Patient has no other complaints at this time (RONAK MORAN) Review of Systems: Review of Systems: Constitutional: Denies fever or chills. Respiratory: Denies cough or shortness of breath. Cardiovascular: Denies chest pain or edema. GI: See HPI : See HPI Musculoskeletal: Denies back pain or joint pain. Integument: Denies rash, including palms and oral mucosa. Neurologic: Denies headache, focal weakness or sensory changes. (RONAK MORAN) Heart Score: C/O Chest Pain: No (RONAK MORAN) Allergies: Allergies: Allergies Coded Allergies Type Severity Reaction Last Updated Verified latex Allergy Intermediate RASH, ITCH 11/09/20 Yes talc Allergy Intermediate RASH, ITCH 11/09/20 Yes (RONAK MORAN) Physical Exam: PE: Constitutional: Obese, well-groomed, no acute distress, non-toxic appearance. HENT: Normocephalic, atraumatic, bilateral external ears normal, oropharynx moist, no oral exudates, nose normal. Eyes: Conjunctiva normal, no discharge. Cardiovascular:Heart rate regular rhythm, no murmur. Lungs & Thorax: Bilateral breath sounds clear to auscultation. Abdomen: Bowel sounds normal, soft, no tenderness, no masses, no pulsatile ma sses. : Mons pubis without lesions, appropriate and symmetrical hair growth pattern. No lesions to labia minora or majora. Small amount of white-yellow discharge noted at introitus. Skin: Warm, dry, no erythema, no rash. Extremities: No tenderness, no cyanosis, no clubbing, ROM intact, no edema. Neurologic: Alert and oriented X 3, normal motor function, normal sensory function, no focal deficits noted. (RONAK MORAN) Current Patient Data: Labs: Laboratory Tests Test 11/09/20 10:59 POC Urine HCG, Qualitative Hcg negative (Negative) Vital Signs: Vital Signs Date Time Temp Pulse Resp B/P (MAP) Pulse Ox O2 Delivery O2 Flow Rate FiO2 11/09/20 11:10 98.0 71 15 171/89 (116) 100 Room Air 98.0 (RONAK MORAN) Course & Med Decision Making: Course & Med Decision Making Pertinent Labs and Imaging studies reviewed. (See chart for details) Swabs and urine sample will be obtained to test for gonorrhea, chlamydia, trichomoniasis, bacterial vaginosis and yeast infection. She may have additional treatment for BV or yeast infection if the wet prep comes back positive. Wet prep came back positive for likely BV, and urine shows UTI. Patient will be given antibiotics to treat these conditions. Will not treat for gonorrhea and chlamydia at this time, as there is etiology of her symptoms with the resulted work-up. Patient is aware that if G/C comes back positive, she will need additional prescription sent in, as well as advised her partner to seek treatment. Patient is agreeable to discharge plan. (RONAK MORAN) Dragon Disclaimer: Dragon Disclaimer: This electronic medical record was generated, in whole or in part, using a voice recognition dictation system. (RONAK MORAN) Departure Departure Impression: Primary Impression: BV (bacterial vaginosis) Additional Impression: Urinary tract infection Qualified Codes: N39.0 - Urinary tract infection, site not specified Disposition: HOME / SELF CARE / HOMELESS Condition: STABLE Referrals: BOB TANNER MD (PCP) Patient Instructions: Bacterial Vaginosis, [id number], Urinary Tract Infection, [id number] Additional Instructions: It will take a few days for the additional swab testing results to come back. Until then, complete the course of antibiotics were prescribed. If you have worsening pain, blood in your urine, develop a fever, please return to the emergency department. Do not drink alcohol while taking metronidazole (Flagyl). Scripts Cephalexin (CEPHALEXIN) 500 Mg Tablet 1 TAB PO BID for 7 Days, #14 TAB Take 1 tablet by mouth twice a day for 7 days. Please be sure to take full course of antibiotics. Prov: RONAK MORAN 11/09/20 Metronidazole (METRONIDAZOLE) 500 Mg Tablet 1 TAB PO BID for 7 Days, #14 TAB 0 Refills Take 1 tablet by mouth twice a day for 7 days. Please be sure to take full course of antibiotics. Prov: RONAK MORAN 11/09/20 Attending Signature I have participated in the care of this patient and I have reviewed and agree with all pertinent clinical information above including history, exam, and recommendations. (GEM PERKINS DO) RONAK MORAN Nov 09, 2020 11:31 GEM PERKINS DO Nov 09, 2020 13:04
[2020-11-09 11:33] LABS: BILIRUBIN,URINE NEGATIVE (NEG); CLARITY,URINE CLEAR; COLOR,URINE YELLOW; NITRITE,URINE NEGATIVE (NEG); PROTEIN,URINE NEGATIVE (NEG-TRACE); UROBILINOGEN,URINE 0.2 mg/dL (0.2 mg/dL)
[2020-11-09 11:46] LABS: BACTERIA,URINE FEW /HPF (0-FEW); WBC,URINE 20-40 /HPF (0-4)
[2020-11-09] MEDS ORDERED: CEPH500T PO (12:44)
[2020-11-09] MEDS ORDERED: METR-34 PO (12:44)
[2020-11-09 13:11] VITALS: BP 142/70
[2020-11-10 19:10] LABS: GC PROBE Negative (Negative)
== END 2020-11-09 13:12 | disposition home or self-care (01) ==
LOC: ER 10:44
DX: N76.0 Acute vaginitis (principal); B96.89 Other specified bacterial agents as the cause of diseases classified elsewhere; N39.0 Urinary tract infection, site not specified; Z91.040 Latex allergy status; Z88.8 Allergy status to other drugs, medicaments and biological substances
CPT/HCPCS: 81001; 81025; 87086; 87491; 87591; 99283; Q0111